=== PATIENT | male | born 1960 | race Caucasian/White ===

== ENCOUNTER 2018-11-13 08:14 | Emergency (ER) | payer OTHER ==
[2018-11-13 10:17] LABS: #Eosinphils 0.1 thou/uL (0.0-0.7); #Lymphocytes 1.6 thou/uL (1.20-3.40); #Monocytes 1.2 thou/uL (0.11-0.59); #Neutrophils 8.1 thou/uL (1.40-6.50); %Basophils 0.3 % (0.0-1.0); %Eosinophils 0.5 % (0.0-10.0); %Lymphocytes 14.1 % (21.0-51.0); %Monocytes 11.3 % (0.0-10.0); %Neutrophils 73.8 % (42.0-75.0); Hemoglobin 13.1 g/dL (14.0-18.0); Mean Corpuscular HGB CONC 33.6 g/dL (32.0-36.0); Mean Corpuscular Hemoglobin 31.8 pg (27.0-31.0); Mean Corpuscular Volume 94.7 fL (78.0-98.0); Platelet Count 195 thou/uL (130-400); RBC Distribution Width 15.5 % (11.5-14.5); Red Blood Cell (RBC) Count 4.11 mill/uL (4.70-6.10)
[2018-11-13 10:35] LABS: Troponin I 0.035 ng/mL (< 0.028)
[2018-11-13 10:43] LABS: ALT (SGPT) 26 U/L (8-55); AST (SGOT) 20 U/L (5-34); Albumin 3.7 g/dL (3.5-5.0); Alkaline Phosphatase 66 U/L (40-150); Anion Gap 17 mmol/L (10-20); BUN (Urea Nitrogen) 15 mg/dL (8.4-25.7); Bilirubin, Total 1.1 mg/dL (0.2-1.2); Calc. Creatinine Clearance 0 mL/min (70-130); Carbon Dioxide 20 mmol/L (22-29); Chloride 99 mmol/L (98-107); Estimated GFR-MDRD 82; Globulin 3.5 g/dL (2.4-3.5); Glucose 86 mg/dL (70-105); Potassium 4.1 mmol/L (3.5-5.1); Protein, Total 7.2 g/dL (6.0-8.3); Sodium 132 mmol/L (136-145)
[2018-11-13 11:28] LABS: #Basophils 0.1 thou/uL (0.0-0.2); #Eosinphils 0.1 thou/uL (0.0-0.7); #Lymphocytes 1.5 thou/uL (1.20-3.40); #Neutrophils 7.3 thou/uL (1.40-6.50); %Basophils 0.6 % (0.0-1.0); %Eosinophils 0.8 % (0.0-10.0); %Lymphocytes 14.8 % (21.0-51.0); %Monocytes 9.8 % (0.0-10.0); %Neutrophils 74.1 % (42.0-75.0); Hemoglobin 12.3 g/dL (14.0-18.0); Mean Corpuscular HGB CONC 33.4 g/dL (32.0-36.0); Mean Corpuscular Hemoglobin 31.9 pg (27.0-31.0); Mean Corpuscular Volume 95.4 fL (78.0-98.0); Mean Platelet Volume 8.4 fL (7.4-10.4); Platelet Count 193 thou/uL (130-400); RBC Distribution Width 15.3 % (11.5-14.5); Red Blood Cell (RBC) Count 3.85 mill/uL (4.70-6.10); White Blood Cell (WBC) Count 9.9 thou/uL (4.8-10.8)
[2018-11-13 11:50] LABS: ALT (SGPT) 24 U/L (8-55); AST (SGOT) 17 U/L (5-34); Albumin 3.5 g/dL (3.5-5.0); Alkaline Phosphatase 63 U/L (40-150); Anion Gap 15 mmol/L (10-20); BUN (Urea Nitrogen) 14 mg/dL (8.4-25.7); Calc. Creatinine Clearance 0 mL/min (70-130); Calcium 8.3 mg/dL (7.8-10.44); Carbon Dioxide 23 mmol/L (22-29); Chloride 99 mmol/L (98-107); Estimated GFR-MDRD 81; Globulin 2.9 g/dL (2.4-3.5); Glucose 82 mg/dL (70-105); Potassium 4.2 mmol/L (3.5-5.1); Protein, Total 6.4 g/dL (6.0-8.3); Sodium 133 mmol/L (136-145)
[2018-11-13] MEDS ORDERED: methylPREDNISolone Sod Succ/PF 125 MG/2 ML VIAL ONE (11:58)
--- NOTE | 2018-11-13 12:06 | RAD ---
PORTABLE CHEST ONE VIEW: 11/13/2018 0921 HOURS HISTORY: Chest pain. FINDINGS: The heart is enlarged. There is mild prominence of the pulmonary vascularity with consolidation/atel ectatic change at the left lung base. No pneumothoraces or large effusions are seen. POS: OFF
[2018-11-13 12:08] LABS: CKMB 0.6 ng/mL (0-6.6)
== END 2018-11-13 12:29 | disposition home or self-care (01) ==
LOC: ERS 08:14
DX: J44.1 Chronic obstructive pulmonary disease with (acute) exacerbation (principal); Z87.891 Personal history of nicotine dependence
CPT/HCPCS: 36415; 71045; 80053; 82553; 83880; 84484; 85025; 93005; 94640; 96374; J2930; J7620

== ENCOUNTER 2019-10-16 18:03 | Emergency (ER) | payer OTHER ==
--- NOTE | 2019-10-16 19:46 | RAD ---
EXAM: LEFT KNEE TWO VIEWS: 10/16/19 HISTORY: Chronic left knee pain. FINDINGS: tricompartment arthrosis and degenerative changes with narrowing, particularly of the medial compartm ent. No evidence for acute fracture or dislocation. IMPRESSION: Osteoarthrosis left knee joint with narrowing of the medial compartment in particular. No fracture or dislocation. POS: RRE
[2019-10-16] MEDS ORDERED: traMADol HCl 50 MG TAB ONE (20:15)
== END 2019-10-16 20:25 | disposition home or self-care (01) ==
LOC: ERS 18:03
DX: M17.12 Unilateral primary osteoarthritis, left knee (principal); G89.29 Other chronic pain; M25.562 Pain in left knee; E03.9 Hypothyroidism, unspecified; F17.290 Nicotine dependence, other tobacco product, uncomplicated; Z79.899 Other long term (current) drug therapy

== ENCOUNTER 2021-06-01 07:20 | Emergency (ER) | payer OTHER ==
[2021-06-01] MEDS ORDERED: Ketorolac Tromethamine 30 MG/ML VIAL ONE (08:44)
== END 2021-06-01 08:50 | disposition home or self-care (01) ==
LOC: ERS 07:20
DX: M54.2 Cervicalgia (principal); M62.838 Other muscle spasm; E03.9 Hypothyroidism, unspecified; F17.290 Nicotine dependence, other tobacco product, uncomplicated; Z79.899 Other long term (current) drug therapy
CPT/HCPCS: 96372; 99283; J1885

== ENCOUNTER 2022-11-12 19:30 | Outpatient (CLI) | payer OTHER | END 2022-11-12 19:31 | disposition home or self-care (01) | LOC: SLEEPLAB 19:30 | PROVIDERS: ATTEND Family Medicine | DX: G47.33 Obstructive sleep apnea (adult) (pediatric) (principal); G47.61 Periodic limb movement disorder; G25.81 Restless legs syndrome; G47.10 Hypersomnia, unspecified; R09.89 Other specified symptoms and signs involving the circulatory and respiratory systems; E66.9 Obesity, unspecified; J44.9 Chronic obstructive pulmonary disease, unspecified; I51.89 Other ill-defined heart diseases; I50.9 Heart failure, unspecified | CPT/HCPCS: 95810 ==

== ENCOUNTER 2022-11-24 11:10 | Inpatient (IN) | payer OTHER ==
[2022-11-24 12:22] LABS: #Basophils 0.1 thou/uL (0.0-0.2); #Eosinphils 0.2 thou/uL (0.0-0.7); #Monocytes 0.5 thou/uL (0.11-0.59); #Neutrophils 4.1 thou/uL (1.40-6.50); %Basophils 0.8 % (0.0-1.0); %Eosinophils 3.5 % (0.0-10.0); %Lymphocytes 18.1 % (21.0-51.0); %Monocytes 8.2 % (0.0-10.0); %Neutrophils 69.2 % (42.0-75.0); Hemoglobin 11.6 g/dL (14.0-18.0); Mean Corpuscular HGB CONC 33.9 g/dL (32.0-36.0); Mean Corpuscular Hemoglobin 31.1 pg (27.0-31.0); Mean Corpuscular Volume 91.7 fl (78.0-98.0); Mean Platelet Volume 11.4 fL (7.4-10.4); Platelet Count 181 10x3/uL (130-400); RBC Distribution Width 14.7 % (11.5-14.5); Red Blood Cell (RBC) Count 3.73 mill/uL (4.70-6.10)
[2022-11-24 12:45] LABS: ALT (SGPT) 19 U/L (8-55); AST (SGOT) 30 U/L (5-34); Alkaline Phosphatase 71 U/L (40-110); Anion Gap 17 mmol/L (10-20); BUN (Urea Nitrogen) 21 mg/dL (8.4-25.7); Bilirubin, Total 0.7 mg/dL (0.2-1.2); Calc. Creatinine Clearance 0 mL/min (70-130); Calcium 8.9 mg/dL (7.8-10.44); Carbon Dioxide 20 mmol/L (23-31); Chloride 106 mmol/L (98-107); Estimated GFR 57; Globulin 3.9 g/dL (2.4-3.5); Glucose 97 mg/dL (80-115); Potassium 3.6 mmol/L (3.5-5.1); Protein, Total 7.9 g/dL (5.8-8.1); Sodium 139 mmol/L (136-145)
[2022-11-24 13:32] LABS: Bacteria/HPF None Seen HPF (None Seen); Bilirubin Negative (Negative); Blood, Urine Negative (Negative); CAUTI Indications for Culture Alt mental st,lethar; Clarity Clear (Clear); Glucose, Urine (Dipstick) Normal (Negative); Ketone, Urine 10 mg/dL (Negative); Leukocyte 500 Leu/uL (Negative); Nitrite Negative (Negative); Protein, Urine (Dipstick) 20 mg/dL (Neg-Trace); RBC/HPF 0-3 HPF (0-3); Specific Gravity, Urine 1.029 (1.002-1.036); Squamous Epithelial 0-3 HPF (0-3); Urobilinogen 3 mg/dL (Less than 2); WBC/HPF Greater than 50 HPF (0-3); pH, Urine 5.5 (5.0-9.0)
[2022-11-24 13:33] LABS: Urine Culture Reflex Yes Yes
[2022-11-24] MEDS ORDERED: cefTRIAXone (ROCEPHIN) 2 GM VIAL ONE (13:58)
[2022-11-24 15:51] VITALS: BMI 39.4
[2022-11-24] MEDS ORDERED: Acetaminophen 325 MG TAB PO PRN (17:55)
[2022-11-24 19:26] LABS: Iron 36 ug/dL (65-175); Iron Binding Capacity, Total 263 mcg/dL (261-462)
[2022-11-24] MEDS: cefTRIAXone\\ROCEPHIN 1 GM in Sodium Chloride 0.9% 100 ML IVPB SCH (19:45)
[2022-11-24] MEDS: Nicotine 21 MG PATCH TD SCH (19:46)
[2022-11-25 07:43] LABS: #Eosinphils 0.3 thou/uL (0.0-0.7); #Monocytes 0.4 thou/uL (0.11-0.59); %Basophils 0.8 % (0.0-1.0); %Lymphocytes 23.5 % (21.0-51.0); %Monocytes 8.2 % (0.0-10.0); %Neutrophils 61.1 % (42.0-75.0); Hemoglobin 11.5 g/dL (14.0-18.0); Mean Corpuscular HGB CONC 32.5 g/dL (32.0-36.0); Mean Corpuscular Hemoglobin 30.6 pg (27.0-31.0); Mean Corpuscular Volume 94.1 fl (78.0-98.0); Mean Platelet Volume 11.7 fL (7.4-10.4); Platelet Count 163 10x3/uL (130-400); RBC Distribution Width 14.6 % (11.5-14.5); Red Blood Cell (RBC) Count 3.76 mill/uL (4.70-6.10)
[2022-11-25 08:02] LABS: Anion Gap 14 mmol/L (10-20); BUN (Urea Nitrogen) 16 mg/dL (8.4-25.7); Calc. Creatinine Clearance 117 mL/min (70-130); Calcium 8.4 mg/dL (7.8-10.44); Carbon Dioxide 21 mmol/L (23-31); Chloride 108 mmol/L (98-107); Estimated GFR 75; Glucose 74 mg/dL (80-115); Potassium 3.6 mmol/L (3.5-5.1); Sodium 139 mmol/L (136-145)
[2022-11-25] MEDS: Multivitamin W/ Minerals 1 TAB PO SCH (09:03)
[2022-11-25] MEDS ORDERED: Potassium Chloride 20 MEQ TAB PO SCH (10:30)
[2022-11-25] MEDS: cefTRIAXone\\ROCEPHIN 1 GM in Sodium Chloride 0.9% 100 ML IVPB SCH (18:19)
[2022-11-25] MEDS: Nicotine 21 MG PATCH TD SCH (18:20)
[2022-11-25] MEDS: Apixaban 5 MG TAB PO SCH (21:07)
[2022-11-25] MEDS: Metoprolol Tartrate 25 MG TAB PO SCH (21:09)
[2022-11-26] MEDS ORDERED: Levothyroxine Sodium 25 MCG TAB PO SCH (06:00)
[2022-11-26 06:44] LABS: #Eosinphils 0.3 thou/uL (0.0-0.7); #Monocytes 0.5 thou/uL (0.11-0.59); #Neutrophils 2.9 thou/uL (1.40-6.50); %Basophils 0.8 % (0.0-1.0); %Eosinophils 5.8 % (0.0-10.0); %Lymphocytes 28.7 % (21.0-51.0); %Monocytes 9.2 % (0.0-10.0); %Neutrophils 55.1 % (42.0-75.0); Hemoglobin 12.5 g/dL (14.0-18.0); Mean Corpuscular HGB CONC 32.8 g/dL (32.0-36.0); Mean Corpuscular Hemoglobin 30.8 pg (27.0-31.0); Mean Corpuscular Volume 93.8 fl (78.0-98.0); Mean Platelet Volume 11.5 fL (7.4-10.4); Platelet Count 191 10x3/uL (130-400); RBC Distribution Width 14.6 % (11.5-14.5); Red Blood Cell (RBC) Count 4.06 mill/uL (4.70-6.10); White Blood Cell (WBC) Count 5.2 10x3/uL (4.8-10.8)
[2022-11-26 07:09] LABS: ALT (SGPT) 15 U/L (8-55); AST (SGOT) 22 U/L (5-34); Albumin 3.6 g/dL (3.4-4.8); Alkaline Phosphatase 65 U/L (40-110); Anion Gap 11 mmol/L (10-20); BUN (Urea Nitrogen) 17 mg/dL (8.4-25.7); Bilirubin, Total 0.3 mg/dL (0.2-1.2); Calc. Creatinine Clearance 109 mL/min (70-130); Calcium 8.6 mg/dL (7.8-10.44); Carbon Dioxide 26 mmol/L (23-31); Chloride 108 mmol/L (98-107); Estimated GFR 69; Globulin 3.6 g/dL (2.4-3.5); Glucose 90 mg/dL (80-115); Protein, Total 7.2 g/dL (5.8-8.1); Sodium 141 mmol/L (136-145)
[2022-11-26] MEDS: Atorvastatin Calcium 20 MG TAB PO SCH (09:05)
[2022-11-26] MEDS: Multivitamin W/ Minerals 1 TAB PO SCH (09:05)
[2022-11-26] MEDS: Tamsulosin HCl 0.4 MG CAP PO SCH (09:05)
[2022-11-26] MEDS: Apixaban 5 MG TAB PO SCH ×2 (09:05→21:04)
[2022-11-26] MEDS: Amiodarone 200 MG TAB PO SCH (09:05)
[2022-11-26] MEDS: Metoprolol Tartrate 25 MG TAB PO SCH ×2 (09:05→21:04)
[2022-11-26] MEDS: Nicotine 21 MG PATCH TD SCH (17:27)
[2022-11-26] MEDS: cefTRIAXone\\ROCEPHIN 1 GM in Sodium Chloride 0.9% 100 ML IVPB SCH (17:27)
[2022-11-26 23:25] VITALS: TEMP 98.1
[2022-11-27] MEDS ORDERED: Levothyroxine Sodium 25 MCG TAB PO SCH (06:00)
[2022-11-27] MEDS ORDERED: Levothyroxine Sodium 50 MCG TAB PO SCH (06:00)
[2022-11-27 06:17] LABS: #Basophils 0.1 thou/uL (0.0-0.2); #Eosinphils 0.3 thou/uL (0.0-0.7); #Monocytes 0.6 thou/uL (0.11-0.59); #Neutrophils 2.5 thou/uL (1.40-6.50); %Eosinophils 6.3 % (0.0-10.0); %Lymphocytes 30.3 % (21.0-51.0); %Monocytes 11.4 % (0.0-10.0); %Neutrophils 50.8 % (42.0-75.0); Hemoglobin 12.4 g/dL (14.0-18.0); Mean Corpuscular HGB CONC 32.5 g/dL (32.0-36.0); Mean Corpuscular Hemoglobin 30.5 pg (27.0-31.0); Mean Corpuscular Volume 94.1 fl (78.0-98.0); Mean Platelet Volume 11.2 fL (7.4-10.4); Platelet Count 182 10x3/uL (130-400); RBC Distribution Width 14.4 % (11.5-14.5); Red Blood Cell (RBC) Count 4.06 mill/uL (4.70-6.10); White Blood Cell (WBC) Count 4.9 10x3/uL (4.8-10.8)
[2022-11-27 06:45] LABS: Anion Gap 12 mmol/L (10-20); BUN (Urea Nitrogen) 15 mg/dL (8.4-25.7); Calc. Creatinine Clearance 126 mL/min (70-130); Calcium 8.9 mg/dL (7.8-10.44); Carbon Dioxide 25 mmol/L (23-31); Chloride 106 mmol/L (98-107); Estimated GFR 82; Glucose 82 mg/dL (80-115); Potassium 4.2 mmol/L (3.5-5.1); Sodium 139 mmol/L (136-145)
[2022-11-27] MEDS: Tamsulosin HCl 0.4 MG CAP PO SCH (08:53)
[2022-11-27] MEDS: Multivitamin W/ Minerals 1 TAB PO SCH (08:53)
[2022-11-27] MEDS: Apixaban 5 MG TAB PO SCH (08:53)
[2022-11-27] MEDS: Metoprolol Tartrate 25 MG TAB PO SCH (08:53)
[2022-11-27] MEDS: Atorvastatin Calcium 20 MG TAB PO SCH (08:53)
[2022-11-27] MEDS: Amiodarone 200 MG TAB PO SCH (08:53)
[2022-11-27] MEDS ORDERED: cefTRIAXone\\ROCEPHIN 2 GM in Sodium Chloride 0.9% 100 ML IVPB SCH (10:30)
[2022-11-27 12:51] VITALS: BP 123/75
[2022-11-27 19:09] LABS: Hematocrit 33.8 % (37.5-51.0); RBC Folate Test Component 1408 ng/mL (>498)
== END 2022-11-27 16:03 | disposition home or self-care (01) | DRG 690 ==
LOC: ERS 11:10 → T4-A 14:44
PROVIDERS: ADMIT Internal Medicine; ATTEND Internal Medicine
DX: N39.0 Urinary tract infection, site not specified (principal); J44.1 Chronic obstructive pulmonary disease with (acute) exacerbation; I31.39 Other pericardial effusion (noninflammatory); I50.22 Chronic systolic (congestive) heart failure; I11.0 Hypertensive heart disease with heart failure; E03.9 Hypothyroidism, unspecified; E34.9 Endocrine disorder, unspecified; Z66 Do not resuscitate; F10.90 Alcohol use, unspecified, uncomplicated; F17.210 Nicotine dependence, cigarettes, uncomplicated; I95.9 Hypotension, unspecified; R26.81 Unsteadiness on feet; R29.6 Repeated falls; N50.89 Other specified disorders of the male genital organs; R47.1 Dysarthria and anarthria; F19.10 Other psychoactive substance abuse, uncomplicated; L08.9 Local infection of the skin and subcutaneous tissue, unspecified; E78.5 Hyperlipidemia, unspecified; I48.91 Unspecified atrial fibrillation; R53.81 Other malaise; R94.6 Abnormal results of thyroid function studies; G47.33 Obstructive sleep apnea (adult) (pediatric); Z90.89 Acquired absence of other organs; Z98.890 Other specified postprocedural states; Z79.890 Hormone replacement therapy; Z79.899 Other long term (current) drug therapy; Z82.49 Family history of ischemic heart disease and other diseases of the circulatory system; Z83.3 Family history of diabetes mellitus; Z80.6 Family history of leukemia; Z80.8 Family history of malignant neoplasm of other organs or systems; R44.1 Visual hallucinations
CPT/HCPCS: 36415; 70450; 71045; 80048; 80053; 81001; 82140; 82607; 82728; 82747; 83540; 83550; 83880; 84443; 84484; 85025; 87086; 93005; 96361; 96365; J0696; J1650; J3490

== ENCOUNTER 2023-11-26 20:52 | Emergency (ER) | payer OTHER ==
[2023-11-26] MEDS ORDERED: Ketorolac Tromethamine 30 MG (1 mL) VIAL ONE (22:23)
[2023-11-26] MEDS ORDERED: Dexamethasone 10 MG/ML VIAL ONE (22:23)
== END 2023-11-26 22:49 | disposition home or self-care (01) ==
LOC: ERS 20:52
DX: M54.50 Low back pain, unspecified (principal); Z87.891 Personal history of nicotine dependence
CPT/HCPCS: 96372; 99283; J1100; J1885

== ENCOUNTER 2023-12-13 12:33 | Emergency (ER) | payer OTHER | END 2023-12-13 13:06 | disposition home or self-care (01) | LOC: ERS 12:33 | DX: G89.29 Other chronic pain (principal); M54.50 Low back pain, unspecified; J44.89 Other specified chronic obstructive pulmonary disease; E03.9 Hypothyroidism, unspecified; Z79.899 Other long term (current) drug therapy; Z87.891 Personal history of nicotine dependence | CPT/HCPCS: 96372; J1885 ==